=== PATIENT | female | born 1970 | race Caucasian/White ===

== ENCOUNTER 2016-05-28 14:54 | Outpatient (RCR) | payer OTHER | END 2016-07-12 15:02 | disposition home or self-care (01) | LOC: PT 14:54 | DX: S39.012D Strain of muscle, fascia and tendon of lower back, subsequent encounter (principal); Y93.F2 Activity, caregiving, lifting; Y92.129 Unspecified place in nursing home as the place of occurrence of the external cause; Y99.0 Civilian activity done for income or pay ==

== ENCOUNTER → 2016-10-14 | Outpatient (CLI) | payer BC | LOC: LAB 15:06 | DX: Z02.0 Encounter for examination for admission to educational institution (principal); L65.9 Nonscarring hair loss, unspecified; F51.01 Primary insomnia ==

== ENCOUNTER → 2018-09-23 | Outpatient (CLI) | payer BC | LOC: LAB 16:31 | DX: Z02.0 Encounter for examination for admission to educational institution (principal); Z76.89 Persons encountering health services in other specified circumstances ==